=== PATIENT | female | born 1990 | race Caucasian/White ===

== ENCOUNTER 2018-06-30 23:28 | Emergency (ER) | payer OTHER ==
[~2018-06-30] VITALS: Ht 154.9 cm; Wt 75.3 kg
[~2018-06-30 23:28] MED LIST: AMOXICILLIN500 MG PO; BACTRIM DS 8001 TAB PO; CHERATUSSIN AC118 M1 PO; CLEOCIN HCL300 M1 PO; ESGIC 50-325-41 EACH PO; IMITREX100 M1 PO; PANTOPRAZOLE SO20 MG PO; PERCOCET 325 MG1 TA2 PO; PRAZOSIN HCL1 MG PO; REGLAN10 M1 PO; ROBITUSSIN W/CO10 ML PO; SERTRALINE HYDR50 MG PO; SKYLA13.5 MG; TYLENOL WITH C1 EACH PO; ZITHROMAX Z-PA250 M1 PO
[2018-06-30 23:56] LABS: ABSOLUTE BASOPHIL COUNT 0 /CUMM (0.0-0.2); ABSOLUTE EOSINOPHIL COUNT 0.1 /CUMM (0.0-0.7); ABSOLUTE GRANULOCYTE CT 7.2 /CUMM (1.4-6.5); ABSOLUTE LYMPH COUNT 3.6 /CUMM (1.2-3.4); ABSOLUTE MONOCYTE COUNT 0.6 /CUMM (0.10-0.60); BASOPHIL % 0.4 % (0.0-2.0); EOSINOPHIL % 0.8 % (0-5); GRANULOCYTE % 62.5 % (42.2-75.2); HEMATOCRIT 40.8 % (37-47); MEAN CORPUSCULAR HGB 32.2 PG (27.0-31.0); MEAN CORPUSCULAR HGB CONC 33.9 G/DL (33.0-37.0); MEAN PLATELET VOLUME 8.1 FL (7.4-10.4); PLATELET COUNT 351 /CUMM (130-400); RBC DISTRIBUTION WIDTH 12.8 % (11.5-14.5); WHITE BLOOD CELL COUNT 11.6 /CUMM (4.8-10.8)
--- NOTE | 2018-07-01 00:07 | ED GENERAL ADULT ---
History of Present Illness General Chief Complaint: Chest Pain Stated Complaint: CHEST PAIN Source: patient Exam Limitations: no limitations Vital Signs & Intake/Output Vital Signs & Intake/Output Vital Signs Date Time Temp Pulse Resp B/P B/P Pulse O2 O2 Flow FiO2 Mean Ox Delivery Rate 07/01 0110 97.9 64 16 116/68 98 Room Air 06/30 2341 98.4 67 18 124/85 98 Room Air ED Intake and Output 07/01 0000 06/30 1200 Intake Total Output Total Balance Patient 166 lb Weight Weight Reported by Patient Measurement Method Allergies Coded Allergies: aspirin (HIVES, ITCHING 07/05/16) ibuprofen (ITCHING 07/05/16) Reconcile Medications Butalb/Acetaminophen/Caffeine (Esgic 50-325-40 MG Tablet) 50 MG-325 MG-40 MG TABLET 1 TAB PO Q6H PRN HEADACHE Clindamycin HCl (Cleocin HCl) 300 MG CAPSULE 1 CAP PO TID DENTAL INFECTION Codeine Phosphate/Guaifenesi (Cheratussin AC Syrup) 10 MG-100 MG/5 ML LIQUID 10 ML PO Q6H PRN COUGH Levonorgestrel (Margaret) 14 MCG/24 HOUR (3 YEARS) IUD CONTROL (Reported) Metoclopramide HCl (Reglan) 10 MG TABLET 1 TAB PO 2 TIMES/DAY PRN headache/ nausea 30 minutes before meals and bedtime Pantoprazole Sodium 20 MG ECT 1 TAB PO QPM GI (Reported) PRAZOSIN HCL (Prazosin HCl) 1 MG CAP 1 CAP PO DAILY SLEEP (Reported) SERTRALINE HCL (Sertraline Hydrochloride) 50 MG TAB 1 TAB PO DAILY MOOD HEALTH (Reported) Sumatriptan Succinate (Imitrex) 100 MG TABLET 1 TAB PO AD PRN HEADACHE with fluids as early as possible after the onset of a migraine attack;may repeat after 2 hours Tylenol With Codeine (Tylenol With Codeine #3 Tablet) 1 EACH TABLET 1 TAB PO TID PRN PAIN Triage Note: PT TO ED C/O CENTER CHEST PAIN THAT SHOOTS THROUGH BACK, CONSTANT FOR 1 HR 20MINS. DENIES N/V/SOB. C/O RT SIDE JAW PAIN FOR 3 MINS APPROX 1 HR AGO. DENIES AT THIS TIME Triage Nurses Notes Reviewed? yes Onset: Gradual Duration: day(s): Timing: intermittent : No Patient currently breastfeeds: No HPI: 27-year-old otherwise healthy female presenting with intermittent chest pain over the past several days. Patient reports sporadic episodes of substernal chest pain, sometimes is nonradiating, sometimes radiates to her back or the jaw , pain is usually worse with movement. States that the pain is not pleuritic, and is not exertional. No prior personal cardiac history. Denies family history of cardiac at a young age. No recent trauma or strenuous activity. Has not tried anything for pain relief. Denies associated diaphoresis, nausea, vomiting, shortness of breath, palpitations, leg swelling. (Darya Sarmiento) Past History Travel History Traveled to [place] past 21 day No Medical History Any Pertinent Medical History? see below for history Neurological: NONE EENT: NONE Cardiovascular: NONE Respiratory: bronchitis Gastrointestinal: NONE Hepatic: NONE Renal: NONE Musculoskeletal: NONE Psychiatric: NONE Endocrine: NONE Blood Disorders: NONE Cancer(s): NONE [employer]/Reproductive: OVARIAN ABSCESS Tetanus Vaccine: 02/23/13 Surgical History Surgical History: non-contributory, N Psychosocial History What is your primary language Qatari Tobacco Use: Current Daily Use Daily Tobacco Use Amount/Type: =< 4 Cigarettes daily ETOH Use: denies use Illicit Drug Use: denies illicit drug use Family History Hx Contributory? No (Darya Sarmiento) Review of Systems Review of Systems Constitutional: Reports: no symptoms. EENTM: Reports: no symptoms. Respiratory: Reports: no symptoms. Cardiovascular: Reports: see HPI. GI: Reports: no symptoms. Genitourinary: Reports: no symptoms. Musculoskeletal: Reports: no symptoms. Skin: Reports: no symptoms. Neurological/Psychological: Reports: no symptoms. Hematologic/Endocrine: Reports: no symptoms. Immunologic/Allergic: Reports: no symptoms. All Other Systems: Reviewed and Negative (Darya Sarmiento) Physical Exam Physical Exam General Appearance: well developed/nourished, no apparent distress, alert, awake , comfortable Comments: Gen.: Well-nourished, well-developed, no acute distress. Head: Normocephalic, atraumatic. Eyes: Normal inspection bilaterally Ears: Normal inspection bilaterally Nose: Normal inspection Neck: Normal inspection Lungs: clear to auscultation bilaterally, normnal breath sounds Chest wall: Positive tenderness to palpation over the sternum and right anterior chest wall, no visible signs of trauma Heart: regular rate and rhythm Abdomen: soft and non-tender Extremities: Normal inspection Neurologic: alert and oriented x3, steady gait Skin: warm and dry Psychiatric: Normal mood and affect, no apparent delusions or hallucinations, behavior appropriate Core Measures ACS in differential dx? No CVA/TIA Diagnosis: No Sepsis Present: No Sepsis Focused Exam Completed? No (Darya Sarmiento) Progress Differential Diagnoses I considered the following diagnoses in my evaluation of the patient: [MSK strain versus costochondritis versus trauma, will concern for ACS versus angina versus PE versus aortic dissection versus Boerhaave's versus pericardial effusion versus tamponade versus pericarditis] Plan of Care: Orders Procedure Date/time Status TROPONIN LEVEL 06/30 2338 Complete HUMAN BETA HCG SCREEN 06/30 2338 Complete D-DIMER 06/30 2338 Complete COMPREHENSIVE METABOLIC PANEL 06/30 2338 Complete CBC WITHOUT DIFFERENTIAL 06/30 2338 Complete EKG 06/30 2329 Active Laboratory Tests 06/30/18 2345: Anion Gap 9, Estimated GFR > 60, BUN/Creatinine Ratio 12.9, Glucose 99, Calcium 8.9, Total Bilirubin 0.2, AST 24, ALT 24, Alkaline Phosphatase 81, Troponin I < 0.01, Total Protein 6.9, Albumin 3.9, Globulin 3.0, Albumin/Globulin Ratio 1.3, Total Beta HCG NEGATIVE, D-Dimer High Sensitivty < 200, CBC w Diff MAN DIFF ORDERED, RBC 4.30, MCV 95.0, MCH 32.2 H, MCHC 33.9, RDW 12.8, MPV 8.1, Gran % 62.5, Lymphocytes % 31.1, Monocytes % 5.2, Eosinophils % 0.8, Basophils % 0.4, Absolute Granulocytes 7.2 H, Segmented Neutrophils 61, Absolute Lymphocytes 3.6 H, Lymphocytes 35, Monocytes 3, Absolute Monocytes 0.6, Absolute Eosinophils 0.1, Basophils 1, Absolute Basophils 0, Platelet Estimate ADEQUATE, Normocytic RBCs VERIFIED, Normochromic RBCs VERIFIED, Fld Total RBCs Counted 100 EKG is nonischemic, troponin negative Labs unremarkable including negative d-dimer Chest x-ray unremarkable Patient reports no pain relief after Tylenol, is allergic to all NSAIDs. Offered Rx Lidoderm patches, but declining at this time. Instructed to continue using Tylenol as needed for pain, and warm compresses for additional pain relief. Given strict return precautions. Initial ED EKG: NSR, nonspecific ST T wave chg (V1-V3 T waver inversions) (Darya Sarmiento) Departure Departure Disposition: HOME OR SELF CARE Condition: Stable Clinical Impression Primary Impression: Chest pain Referrals: Patient Has No Primary Care Dr (PCP/Family) Additional Instructions: Follow-up with a primary care provider for reevaluation and to establish care. Return to the emergency department for any normal worsening symptoms. Departure Forms: Customer Survey General Discharge Information (Darya Sarmiento) PA/HEMMER CHAINSTITCH Co-Sign Statement Statement: ED Attending supervision documentation- [] I saw and evaluated the patient. I have also reviewed all the pertinent lab results and diagnostic results. I agree with the findings and the plan of care as documented in the PA's/HEMMER CHAINSTITCH's documentation. [X] I have reviewed the ED Record and agree with the PA's/HEMMER CHAINSTITCH's documentation. [] Additions or exceptions (if any) to the PAs/HEMMER CHAINSTITCH's note and plan are summarized below: [] (Stephanie CARROLL,Harvey German) Critical Care Note Critical Care Note Critical Care Time: non-applicable (Darya Sarmiento)
--- NOTE | 2018-07-01 00:45 | RADIOLOGY REPORT ---
EXAMINATION: XR CHEST CLINICAL INFORMATION: Chest pain. COMPARISON: None TECHNIQUE: 2 views of the chest were obtained. FINDINGS: The lungs are well expanded. There is no focal consolidation, edema, or effusion. No pneumothorax. The cardiomediastinal silhouette is within normal limits. No acute osseous abnormality. Prominent scoliotic curvature of the spine. IMPRESSION: No acute pulmonary finding.
[2018-07-01 01:10] VITALS: BP 116/68
== END 2018-07-01 01:28 ==
LOC: ERH 23:28
PROVIDERS: Emergency Medicine
DX: R07.89 Other chest pain (principal)
CPT/HCPCS: 71046; 93005; 93010